=== PATIENT | male | born 1985 | race Hispanic/Latino ===

== ENCOUNTER 2019-03-25 07:04 | Emergency (ER) | payer SELFPAY ==
[2019-03-25 07:48] VITALS: BP 125/84
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
== END 2019-03-25 08:13 | disposition home or self-care (01) ==
LOC: ED 07:04
DX: S99.922A Unspecified injury of left foot, initial encounter (principal); Z79.1 Long term (current) use of non-steroidal anti-inflammatories (NSAID); Z79.899 Other long term (current) drug therapy; Z98.890 Other specified postprocedural states; V91.89XA Other injury due to other accident to unspecified watercraft, initial encounter; Y93.89 Activity, other specified; Y92.89 Other specified places as the place of occurrence of the external cause; Y99.8 Other external cause status